=== PATIENT | female | born 1990 | race Caucasian/White ===

== ENCOUNTER 2017-01-09 20:00 | Emergency (ER) | payer OTHER, SELFPAY ==
[2017-01-09 20:21] VITALS: BP 150/90
--- NOTE | 2017-01-09 21:44 | EDM.PDOC ---
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 She found out a couple of days ago that she is . Tonight she felt some wetness down between her legs when she was going to go to the bathroom and she noted some blood when she urinated. She did not notice any tissue or clots in fact she is not sure how much she is really bleeding or if she just spotting. She's had no cramps with this bleeding. She thinks she is about 5-6 weeks along. She is a 2 para 1 abortus 0 and her living child is about 5 years old. She denies any other acute symptoms. She denies any urinary symptoms. - Related Data Allergies Allergy/AdvReac Type Severity Reaction Status Date / Time acetaminophen [From [place]] Allergy Rash Verified 01/09/17 20:22 hydrocodone [From [place]] Allergy Rash Verified 01/09/17 20:22 Home Meds: Home Meds Citalopram [Celexa] 10 mg PO DAILY 01/09/17 [History] Past Medical History - Past Health History Medical/Surgical History: Denies Medical/Surgical History Social & Family History - Tobacco Use Smoking Status *Q: Never Smoker ED ROS GENERAL - Review of Systems Review Of Systems: See Below Constitutional: Reports: No Symptoms HEENT: Reports: No Symptoms Respiratory: Reports: No Symptoms Cardiovascular: Reports: No Symptoms Endocrine: Reports: No Symptoms GI/Abdominal: Reports: Other (She has been having some lower abdominal pain that she talk to her doctor about it who told her it was just tissue down there stretching and it's on both sides) : Reports: No Symptoms Musculoskeletal: Reports: No Symptoms Skin: Reports: No Symptoms Neurological: Reports: No Symptoms Psychiatric: Reports: No Symptoms ED EXAM - Physical Exam Exam: See Below Exam Limited By: No Limitations General Appearance: Alert, WD/WN Eye Exam: Bilateral Eye: Normal Inspection Ears: Normal External Exam Nose: Normal Inspection Throat/Mouth: Normal Inspection, Normal Lips, Normal Voice Head: Atraumatic Neck: Supple Respiratory/Chest: No Respiratory Distress GI/Abdominal Exam: Soft, Non-Tender. No: Guarding, Rigid, Rebound (Female) Exam: Other (Patient has deferred the pelvic exam until after the ultrasound to see if it's needed) Back Exam: Full Range of Motion Extremities: Normal Inspection, Normal Range of Motion Neurological: Alert, Oriented Psychiatric: Normal Affect, Tearful Skin Exam: Warm, Dry Course - Vital Signs Last Recorded V/S: Last Vital Signs Temp 98.2 F 01/09/17 20:19 Pulse 104 H 01/09/17 20:19 Resp 18 01/09/17 20:19 BP 150/90 H 01/09/17 20:19 Pulse Ox 100 01/09/17 20:19 - Orders/Labs/Meds Orders: Active Orders 24 hr Category Date Time Status OB Transvaginal [US] Stat Exams 01/09/17 21:08 Taken Labs: Laboratory Tests 01/09/17 01/09/17 Range/Units 21:19 21:19 WBC 9.93 (3.98-10.04) K/mm3 RBC 4.77 (3.98-5.22) M/mm3 Hgb 13.9 (11.2-15.7) gm/L Hct 41.1 (34.1-44.9) % MCV 86.2 (79.4-94.8) fl MCH 29.1 (25.6-32.2) pg MCHC 33.8 (32.2-35.5) g/dl RDW Std Deviation 39.3 (36.4-46.3) fL Plt Count 226 (182-369) K/mm3 MPV 11.9 (9.4-12.3) fl Neut % (Auto) 58.5 (34.0-71.1) % Lymph % (Auto) 28.7 (19.3-51.7) % [place] % (Auto) 10.2 (4.7-12.5) % Eos % (Auto) 2.0 (0.7-5.8) Baso % (Auto) 0.3 (0.1-1.2) % Neut # (Auto) 5.81 (1.56-6.13) K/mm3 Lymph # (Auto) 2.85 (1.18-3.74) K/mm3 [place] # (Auto) 1.01 H (0.24-0.36) K/mm3 Eos # (Auto) 0.20 (0.04-0.36) K/mm3 Baso # (Auto) 0.03 (0.01-0.08) K/mm3 HCG, Quant 4842.0 mIU/mL - Radiology Interpretation Free Text/Narrative:: Ultrasound shows a gestational sac within the endometrial canal of the fundus not certain whether is a pole that is measuring 5 weeks 5 days no visualize yolk sac and no cardiac activity is noted. - Re-Assessments/Exams Free Text/Narrative Re-Assessment/Exam: 01/09/17 22:51 I spoke to the patient regarding the ultrasound. She understands that she needs to go home and be at bed rest over the weekend and if her symptoms worsen or if the bleeding worsens or there is any clots she needs to return to the ER. Her beta-hCG correlates correctly with 5 weeks. I explained to her that this might be a viable fetus we don't know at this point and it is possible this is the early symptoms of a miscarriage. She is going to follow up with Dr. Pineda on Thursday for recheck or return to the ER if her symptoms worsen. Departure - Departure Time of Disposition: 22:52 Disposition: Home, Self-Care 01 Condition: Good Clinical Impression: Threatened miscarriage in early - Discharge Information Referrals: Jacobo Holland [Primary Care Provider] - Milton Pineda MD [Physician] - Forms: ED Department Discharge Additional Instructions: Home and bed rest over the weekend, no strenuous activity no straining when you go to the bathroom, if there is worsening bleeding or clots noted or marked increase abdominal cramps return to the ER for reevaluation, otherwise follow up with Dr. Pineda by calling his office on Thursday for recheck and a repeat beta hCG as well as possible repeat ultrasound - My Orders Last 24 Hours: My Active Orders 01/09/17 21:08 OB Transvaginal [US] Stat - Assessment/Plan Last 24 Hours: My Active Orders 01/09/17 21:08 OB Transvaginal [US] Stat
--- NOTE | 2017-01-11 19:58 | US ---
First trimester obstetrical ultrasound: Multiple real-time images were obtained transvaginally. Single intrauterine gestation is seen. There appears to be a pole present but no heart activity seen at this time. Hypoechoic material is identified within the endometrial cavity compatible with blood clot. Small amount of free fluid is seen believed to be physiologic. Ovaries appear within normal limits. Measurements: Gestational sac: 0.73 cm - 5 weeks 2 days [place]-rump length: 0.24 cm - 5 weeks 5 days Impression: 1. Blood clot identified within the endometrial cavity. 2. Small gestational sac with what appears to be a pole. No heart activity is seen. Findings may represent nonviable although follow-up study (if patient does not miscarry) recommended in 11 days. 3. Slight free fluid is identified and believed to be physiologic. Diagnostic code #3 Agree with preliminary report issued by [employer] ([facility] preliminary report dictated on 01/09/17, 11:42 PM Central Time)
== END 2017-01-09 22:59 | disposition home or self-care (01) ==
LOC: JD.ED 20:00
DX: O20.0 Threatened abortion (principal); Z88.6 Allergy status to analgesic agent; Z88.5 Allergy status to narcotic agent; Z79.899 Other long term (current) drug therapy; Z3A.01 Less than 8 weeks gestation of pregnancy
CPT/HCPCS: 36415; 76817; 76817-26; 84702; 85025; 99283; 99284-25

== ENCOUNTER 2017-08-30 14:54 | Inpatient (IN) | payer MEDICAID, OTHER ==
[2017-08-30] MEDS ORDERED: Sodium Chloride 0.9% 10 ML Syringe FLUSH PRN (18:28)
[2017-08-30] MEDS ORDERED: Oxytocin/Lactated Ringers 10 UNIT/1,000 ML BAG IV SCH (18:45)
[2017-08-31] MEDS ORDERED: Oxytocin/Lactated Ringers 10 UNIT/1,000 ML BAG IV SCH (00:15)
[2017-08-31] MEDS: Lactated Ringers 1,000 ML IV SCH ×3 (00:42→08:02)
[2017-08-31] MEDS ORDERED: ePHEDrine 50 MG/ML SDV IVPUSH PRN (02:20)
[2017-08-31] MEDS ORDERED: diphenhydrAMINE 50 MG/ML SDV IVPUSH PRN (02:20)
[2017-08-31] MEDS ORDERED: fentaNYL 100 MCG/2 ML SDV EPIDUR PRN (02:20)
[2017-08-31] MEDS ORDERED: Ondansetron 4 MG/2 ML SDV IVPUSH PRN (02:20)
[2017-08-31] MEDS ORDERED: Bupivacaine/fentaNYL/NS 100 ML Bag EPIDUR SCH (02:30)
--- NOTE | 2017-08-31 03:29 | PCM.PREANE ---
Preanesthetic Assessment - Procedure Proposed Procedure: [facility]URTIS - Anesthesia/Transfusion/Family Hx Anesthesia History: Prior Anesthesia Without Reaction Family History of Anesthesia Reaction: No Transfusion History: No Prior Transfusion(s) - Review of Systems General: No Symptoms Pulmonary: Other (hx asthma (childhood) but currently does not use an inhaler ) Cardiovascular: No Symptoms Gastrointestinal: No Symptoms Neurological: No Symptoms Other: Reports: Depression, Anxiety - Physical Assessment NPO Status Date: 08/30/17 NPO Status Time: 23:00 Pulse: 100 Respiratory Rate: 16 Blood Pressure: 133/86 Vital Signs: Last Vital Signs Temp 36.8 C 08/30/17 15:28 Pulse 100 08/30/17 18:00 Resp 16 08/30/17 15:28 BP 133/86 08/30/17 18:00 Pulse Ox Height: 1.65 m Weight: 99.904 kg ASA Class: 2 Mental Status: Alert & Oriented x3 Airway Class: Mallampati = 1 Dentition: Reports: Missing Tooth/Teeth (bottom left molar missing ) Thyro-Mental Finger Breadths: 3 Mouth Opening Finger Breadths: 3 ROM/Head Extension: Full Lungs: Clear to Auscultation, Normal Respiratory Effort Cardiovascular: Regular Rate, Regular Rhythm - Lab Values: Laboratory Last Values WBC 8.44 K/mm3 (3.98-10.04) 08/30/17 18:40 RBC 4.16 M/mm3 (3.98-5.22) 08/30/17 18:40 Hgb 10.8 gm/L (11.2-15.7) L 08/30/17 18:40 Hct 34.2 % (34.1-44.9) 08/30/17 18:40 MCV 82.2 fl (79.4-94.8) 08/30/17 18:40 MCH 26.0 pg (25.6-32.2) 08/30/17 18:40 MCHC 31.6 g/dl (32.2-35.5) L 08/30/17 18:40 RDW Std Deviation 40.1 fL (36.4-46.3) 08/30/17 18:40 Plt Count 183 K/mm3 (182-369) 08/30/17 18:40 MPV 11.5 fl (9.4-12.3) 08/30/17 18:40 Neut % (Auto) 62.5 % (34.0-71.1) 08/30/17 18:40 Lymph % (Auto) 24.5 % (19.3-51.7) 08/30/17 18:40 [place] % (Auto) 11.4 % (4.7-12.5) 08/30/17 18:40 Eos % (Auto) 0.7 (0.7-5.8) 08/30/17 18:40 Baso % (Auto) 0.2 % (0.1-1.2) 08/30/17 18:40 Neut # (Auto) 5.27 K/mm3 (1.56-6.13) 08/30/17 18:40 Lymph # (Auto) 2.07 K/mm3 (1.18-3.74) 08/30/17 18:40 [place] # (Auto) 0.96 K/mm3 (0.24-0.36) H 08/30/17 18:40 Eos # (Auto) 0.06 K/mm3 (0.04-0.36) 08/30/17 18:40 Baso # (Auto) 0.02 K/mm3 (0.01-0.08) 08/30/17 18:40 BUN 9 mg/dL (7-18) 08/30/17 18:40 Creatinine 0.8 mg/dL (0.55-1.02) 08/30/17 18:40 Est Cr Clr Drug Dosing 97.57 mL/min 08/30/17 18:40 Estimated GFR (MDRD) > 60 mL/min (>60) 08/30/17 18:40 Uric Acid 3.9 mg/dL (2.6-6.0) 08/30/17 18:40 AST 29 U/L (15-37) 08/30/17 18:40 ALT 26 U/L (14-59) 08/30/17 18:40 Lactate Dehydrogenase 238 U/L (81-234) H 08/30/17 18:40 Membrane Rupture Negative 08/30/17 15:20 Blood Type A POSITIVE 08/30/17 18:40 Gel Antibody Screen Negative 08/30/17 18:40 - Allergies Allergies/Adverse Reactions: Allergies Allergy/AdvReac Type Severity Reaction Status Date / Time acetaminophen [From [place]] Allergy Rash Verified 01/09/17 20:22 hydrocodone [From [place]] Allergy Rash Verified 01/09/17 20:22 - Blood Blood Available: No Product(s) Available: None - Anesthesia Plan Pre-Op Medication Ordered: None - Acknowledgements Anesthesia Type Planned: Epidural Pt an Appropriate Candidate for the Planned Anesthesia: Yes Alternatives and Risks of Anesthesia Discussed w Pt/Guardian: Yes Pt/Guardian Understands and Agrees with Anesthesia Plan: Yes PreAnesthesia Questionnaire - Past Health History Medical/Surgical History: Denies 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: Psychiatric History: Reports: Anxiety, Depression - SUBSTANCE USE Smoking Status *Q: Never Smoker Second Hand Smoke Exposure: No Recreational Drug Use History: No - HOME MEDS Home Medications: Home Meds Citalopram [Celexa] 10 mg PO DAILY 01/09/17 [History] PNV #116/Iron Fumarate/FA/DHA [Expecta Combo Pack] 1 each PO DAILY [History] - CURRENT (IN HOUSE) MEDS Current Meds: Current Medications Diphenhydramine HCl (Benadryl) 25 mg IVPUSH Q6H PRN PRN Reason: Pruritis Ephedrine Sulfate (Ephedrine Sulfate) 5 mg IVPUSH ASDIRECTED PRN PRN Reason: Hypotension Fentanyl (Sublimaze) 100 mcg EPIDUR Q3H PRN PRN Reason: Pain Last Admin: 08/31/17 02:51 Dose: 100 mcg Fentanyl/Bupivacaine HCl (Fentanyl/Bupivacaine/Ns 2 Mcg-0.125% 100 Ml) 100 ml EPIDUR ASDIRECTED SANDRA Last Admin: 08/31/17 02:51 Dose: 100 ml Lactated Ringer's (Ringers, Lactated) 1,000 mls @ 100 mls/hr IV ASDIRECTED SANDRA Last Infusion: 08/31/17 02:58 Dose: 100 mls/hr Oxytocin/Lactated Ringer's (Pitocin In Lr 10 Units/1,000 Ml) 10 unit in 1,000 mls @ 500 mls/hr IV TITRATE SANDRA; Protocol Oxytocin/Lactated Ringer's (Pitocin In Lr 10 Units/1,000 Ml) 10 unit in 1,000 mls @ 12 mls/hr IV TITRATE SANDRA; Protocol Last Titration: 08/31/17 01:31 Dose: 0 munits/min, 0 mls/hr Ondansetron HCl (Zofran) 4 mg IVPUSH ONETIME PRN PRN Reason: Nausea/Vomiting Sodium Chloride (Saline Flush) 10 ml FLUSH ASDIRECTED PRN PRN Reason: Keep Vein Open Discontinued Medications Fentanyl (Sublimaze) Confirm Administered Dose 100 mcg .ROUTE .[employer] ONE Stop: 08/31/17 02:34
[2017-08-31] MEDS ORDERED: Bupivacaine 0.25% 10 ML SDV ONE (04:00)
[2017-08-31] MEDS ORDERED: Lidocaine 1.5% with EPINEPHrine 1:200,000 5 ML Amp ONE (04:00)
[2017-08-31] MEDS: fentaNYL 100 MCG/2 ML SDV ONE ×2 (05:12→09:39)
--- NOTE | 2017-08-31 08:33 | PCM.LDHP ---
L&D History of Present Illness - General Date of Service: 08/30/17 Admit Problem/Dx: Patient Status Order with Admit Dx/Problem 08/30/17 15:28 Patient Status [ADT] Routine 08/30/17 19:36 Admission Status [Patient Status] [ADT] Routine Admission Diagnosis/Problem Admission Diagnosis/Problem Source of Information: Patient - History of Present Illness Introduction:: 26 year old at 38w2 here with question of rupture of membranes. Big gush in the shower. Then soaked underwear x2 after. Also doesn't feel great, headache and very anxious. 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: Psychiatric History: Reports: Anxiety, Depression Social & Family History - Family History Family Medical History: Noncontributory - Tobacco Use Smoking Status *Q: Never Smoker Second Hand Smoke Exposure: No - Caffeine Use Caffeine Use: Reports: None - Recreational Drug Use Recreational Drug Use: No H&P Review of Systems - Review of Systems: Review Of Systems: See Below General: Reports: No Symptoms HEENT: Reports: Headaches Pulmonary: Reports: No Symptoms Cardiovascular: Reports: No Symptoms Gastrointestinal: Reports: No Symptoms Genitourinary: Reports: No Symptoms Musculoskeletal: Reports: No Symptoms Skin: Reports: No Symptoms Psychiatric: Reports: No Symptoms Neurological: Reports: No Symptoms Hematologic/Lymphatic: Reports: No Symptoms Immunologic: Reports: No Symptoms L&D Exam - Exam Exam: See Below - Vital Signs Vital Signs: Last Vital Signs Temp 36.8 C 08/30/17 15:28 Pulse 100 08/31/17 03:29 Resp 16 08/31/17 03:29 BP 133/86 08/31/17 03:29 Pulse Ox Weight: 99.904 kg - OB Specific Contraction Intensity: Mild to Moderate Movement: Active Heart Tones: Present Heart Tones per Min: 140 Presentation: Vertex - Watson Score Watson Score Cervix Position: Midposition Watson Score Consistency: Soft Watson Score Effacement: 51-70% Watson Score Dilation: 3-4 cm - Exam General: Alert, Oriented HEENT: PERRLA, Conjunctiva Clear, EACs Clear, EOMI, Hearing Intact, Mucosa Moist & [place], Nares Patent, Normal Nasal Septum, Posterior Pharynx Clear, TMs Clear Neck: Supple, Trachea Midline Lungs: Clear to Auscultation, Normal Respiratory Effort Cardiovascular: Regular Rate, Regular Rhythm GI/Abdominal Exam: Normal Bowel Sounds, Soft, Non-Tender, No Organomegaly, No Distention, No Abnormal Bruit, No Mass, Pelvis Stable Genitourinary: Normal external exam, Normal bimanual exam Back Exam: Normal Inspection, Full Range of Motion Extremities: Normal Inspection, Normal Range of Motion, Non-Tender, No Pedal Edema, Normal Capillary Refill Skin: Warm, Dry, Intact Neurological: Cranial Nerves Intact, Reflexes Equal Bilateral Psychiatric: Alert, Normal Affect, Normal Mood - Patient Data Lab Results Last 24 hrs: Laboratory Results - last 24 hr 08/30/17 08/30/17 08/30/17 Range/Units 15:20 18:40 18:40 WBC 8.44 (3.98-10.04) K/mm3 RBC 4.16 (3.98-5.22) M/mm3 Hgb 10.8 L (11.2-15.7) gm/L Hct 34.2 (34.1-44.9) % MCV 82.2 (79.4-94.8) fl MCH 26.0 (25.6-32.2) pg MCHC 31.6 L (32.2-35.5) g/dl RDW Std Deviation 40.1 (36.4-46.3) fL Plt Count 183 (182-369) K/mm3 MPV 11.5 (9.4-12.3) fl Neut % (Auto) 62.5 (34.0-71.1) % Lymph % (Auto) 24.5 (19.3-51.7) % [place] % (Auto) 11.4 (4.7-12.5) % Eos % (Auto) 0.7 (0.7-5.8) Baso % (Auto) 0.2 (0.1-1.2) % Neut # (Auto) 5.27 (1.56-6.13) K/mm3 Lymph # (Auto) 2.07 (1.18-3.74) K/mm3 [place] # (Auto) 0.96 H (0.24-0.36) K/mm3 Eos # (Auto) 0.06 (0.04-0.36) K/mm3 Baso # (Auto) 0.02 (0.01-0.08) K/mm3 BUN 9 (7-18) mg/dL Creatinine 0.8 (0.55-1.02) mg/dL Est Cr Clr Drug Dosing 97.57 mL/min Estimated GFR (MDRD) > 60 (>60) mL/min Uric Acid 3.9 (2.6-6.0) mg/dL AST 29 (15-37) U/L ALT 26 (14-59) U/L Lactate Dehydrogenase 238 H (81-234) U/L Membrane Rupture Negative Blood Type Gel Antibody Screen 08/30/17 Range/Units 18:40 WBC (3.98-10.04) K/mm3 RBC (3.98-5.22) M/mm3 Hgb (11.2-15.7) gm/L Hct (34.1-44.9) % MCV (79.4-94.8) fl MCH (25.6-32.2) pg MCHC (32.2-35.5) g/dl RDW Std Deviation (36.4-46.3) fL Plt Count (182-369) K/mm3 MPV (9.4-12.3) fl Neut % (Auto) (34.0-71.1) % Lymph % (Auto) (19.3-51.7) % [place] % (Auto) (4.7-12.5) % Eos % (Auto) (0.7-5.8) Baso % (Auto) (0.1-1.2) % Neut # (Auto) (1.56-6.13) K/mm3 Lymph # (Auto) (1.18-3.74) K/mm3 [place] # (Auto) (0.24-0.36) K/mm3 Eos # (Auto) (0.04-0.36) K/mm3 Baso # (Auto) (0.01-0.08) K/mm3 BUN (7-18) mg/dL Creatinine (0.55-1.02) mg/dL Est Cr Clr Drug Dosing mL/min Estimated GFR (MDRD) (>60) mL/min Uric Acid (2.6-6.0) mg/dL AST (15-37) U/L ALT (14-59) U/L Lactate Dehydrogenase (81-234) U/L Membrane Rupture Blood Type A POSITIVE Gel Antibody Screen Negative Result Diagrams: 08/30/17 18:40 08/30/17 18:40 Problem List Initiated/Reviewed/Updated: Yes Orders Last 24hrs: Active Orders 24 hr Category Date Time Status Admission Status [Patient Status] [ADT] Routine ADT 08/30/17 19:36 Active Activity as Tolerated [RC] PFP Care 08/30/17 18:28 Active Communication Order [RC] ASDIRECTED Care 08/30/17 18:28 Active Heart Tones [RC] ASDIRECTED Care 08/30/17 18:28 Active Notify Provider [RC] PFP Care 08/30/17 18:28 Active Notify Provider [RC] PRN Care 08/30/17 18:28 Active Peripheral IV Care [RC] . DIRECTED Care 08/30/17 18:28 Active Pump Management, Intrathecal [RC] ASDIRECTED Care 08/30/17 18:41 Active Urinary Catheter Assessment [RC] ASDIRECTED Care 08/30/17 18:40 Active Vaginal Exam [RC] PRN Care 08/30/17 15:28 Active Vital Signs [RC] PER UNIT ROUTINE Care 08/30/17 15:28 Active Vital Signs [RC] PER UNIT ROUTINE Care 08/30/17 18:28 Active Regular Diet [DIET] Diet 08/31/17 Breakfast Active Bupivacaine/fentaNYL/NS [fentaNYL/Bupivacaine/NS 2 MCG- Med 08/31/17 02:30 Active 0.125% 100 ML] 100 ml EPIDUR ASDIRECTED Lactated Ringers [Ringers, Lactated] 1,000 ml Med 08/30/17 18:30 Active IV ASDIRECTED Ondansetron [Zofran] Med 08/31/17 02:20 Active 4 mg IVPUSH ONETIME PRN Oxytocin/Lactated Ringers [Pitocin in LR 10 Units/1,000 Med 08/30/17 18:45 Active ML] 10 unit in 1,000 ml IV TITRATE Oxytocin/Lactated Ringers [Pitocin in LR 10 Units/1,000 Med 08/31/17 00:15 Active ML] 10 unit in 1,000 ml IV TITRATE Sodium Chloride 0.9% [Saline Flush] Med 08/30/17 18:28 Active 10 ml FLUSH ASDIRECTED PRN diphenhydrAMINE [Benadryl] Med 08/31/17 02:20 Active 25 mg IVPUSH Q6H PRN ePHEDrine [ePHEDrine Sulfate] Med 08/31/17 02:20 Active 5 mg IVPUSH ASDIRECTED PRN fentaNYL [Sublimaze] Med 08/31/17 02:20 Active 100 mcg EPIDUR Q3H PRN Electronic Heart Tones Ext w TOCO [WOMSER] Oth 08/30/17 18:28 Ordered Routine Electronic Heart Tones Internal [WOMSER] Per Unit Oth 08/30/17 18:28 Ordered Routine PIH Panel [OM.PC] Stat Oth 08/30/17 18:28 Ordered Peripheral IV Insertion Adult [OM.PC] Routine Oth 08/30/17 18:28 Ordered Resuscitation Status Routine Resus Stat 08/30/17 15:28 Ordered Medication Orders Diphenhydramine HCl (Benadryl) 25 mg IVPUSH Q6H PRN PRN Reason: Pruritis Ephedrine Sulfate (Ephedrine Sulfate) 5 mg IVPUSH ASDIRECTED PRN PRN Reason: Hypotension Fentanyl (Sublimaze) 100 mcg EPIDUR Q3H PRN PRN Reason: Pain Last Admin: 08/31/17 02:51 Dose: 100 mcg Fentanyl/Bupivacaine HCl (Fentanyl/Bupivacaine/Ns 2 Mcg-0.125% 100 Ml) 100 ml EPIDUR ASDIRECTED [facility] Last Admin: 08/31/17 02:51 Dose: 100 ml Lactated Ringer's (Ringers, Lactated) 1,000 mls @ 100 mls/hr IV ASDIRECTED [facility] Last Admin: 08/31/17 08:02 Dose: 100 mls/hr Infusion: 08/31/17 07:06 Dose: 100 mls/hr Infusion: 08/31/17 02:58 Dose: 100 mls/hr Admin: 08/31/17 02:14 Dose: 800 mls/hr Infusion: 08/31/17 02:14 Dose: 800 mls/hr Infusion: 08/31/17 01:34 Dose: 800 mls/hr Infusion: 08/31/17 01:32 Dose: 500 mls/hr Admin: 08/31/17 00:42 Dose: 100 mls/hr Oxytocin/Lactated Ringer's (Pitocin In Lr 10 Units/1,000 Ml) 10 unit in 1,000 mls @ 500 mls/hr IV TITRATE SANDRA; Protocol Oxytocin/Lactated Ringer's (Pitocin In Lr 10 Units/1,000 Ml) 10 unit in 1,000 mls @ 12 mls/hr IV TITRATE SANDRA; Protocol Last Titration: 08/31/17 05:47 Dose: 4 munits/min, 24 mls/hr Titration: 08/31/17 05:13 Dose: 2 munits/min, 12 mls/hr Titration: 08/31/17 01:31 Dose: 0 munits/min, 0 mls/hr Admin: 08/31/17 00:48 Dose: 1 munits/min, 6 mls/hr Ondansetron HCl (Zofran) 4 mg IVPUSH ONETIME PRN PRN Reason: Nausea/Vomiting Last Admin: 08/31/17 07:51 Dose: 4 mg Sodium Chloride (Saline Flush) 10 ml FLUSH ASDIRECTED PRN PRN Reason: Keep Vein Open Assessment/Plan Comment:: 26 year old at 38w with gestational hypertension with consistent blood pressures 140-150/90s. Normal labs. Irregular contractions with some painful. Will augment given gestational hypertension. AROM in about an hour when patient's spouse here.
--- NOTE | 2017-08-31 08:35 | PCM.PNLD ---
Labor Progress Note - VS & Meds Vital Signs: Last Vital Signs Temp 36.8 C 08/30/17 15:28 Pulse 100 08/31/17 03:29 Resp 16 08/31/17 03:29 BP 133/86 08/31/17 03:29 Pulse Ox Active Medications: Current Medications Diphenhydramine HCl (Benadryl) 25 mg IVPUSH Q6H PRN PRN Reason: Pruritis Ephedrine Sulfate (Ephedrine Sulfate) 5 mg IVPUSH ASDIRECTED PRN PRN Reason: Hypotension Fentanyl (Sublimaze) 100 mcg EPIDUR Q3H PRN PRN Reason: Pain Last Admin: 08/31/17 02:51 Dose: 100 mcg Fentanyl/Bupivacaine HCl (Fentanyl/Bupivacaine/Ns 2 Mcg-0.125% 100 Ml) 100 ml EPIDUR ASDIRECTED SANDRA Last Admin: 08/31/17 02:51 Dose: 100 ml Lactated Ringer's (Ringers, Lactated) 1,000 mls @ 100 mls/hr IV ASDIRECTED SANDRA Last Admin: 08/31/17 08:02 Dose: 100 mls/hr Oxytocin/Lactated Ringer's (Pitocin In Lr 10 Units/1,000 Ml) 10 unit in 1,000 mls @ 500 mls/hr IV TITRATE SANDRA; Protocol Oxytocin/Lactated Ringer's (Pitocin In Lr 10 Units/1,000 Ml) 10 unit in 1,000 mls @ 12 mls/hr IV TITRATE SANDRA; Protocol Last Titration: 08/31/17 05:47 Dose: 4 munits/min, 24 mls/hr Ondansetron HCl (Zofran) 4 mg IVPUSH ONETIME PRN PRN Reason: Nausea/Vomiting Last Admin: 08/31/17 07:51 Dose: 4 mg Sodium Chloride (Saline Flush) 10 ml FLUSH ASDIRECTED PRN PRN Reason: Keep Vein Open Discontinued Medications Fentanyl (Sublimaze) Confirm Administered Dose 100 mcg .ROUTE .[facility] ONE Stop: 08/31/17 02:34 Last Admin: 08/31/17 05:12 Dose: Not Given - Uterine Contractions Contraction Intensity: Mild to Moderate Uterine Resting Tone: Soft - Monitoring Monitor Mode: Spiral Electrode Heart Rate (FHR) Baseline: 140 Heart Rate (FHR) Variability: Moderate (6-25 bmp) Accelerations: Present, 15x15 Strip Review: Category I - Vaginal Exam Cervical Position: Midposition - Labor Progress (Free Text) Labor Progress: One deceleration x7 minutes. Otherwise very reassuring FHT with good accelerations and variability. Continue pitocin.
--- NOTE | 2017-08-31 08:37 | PCM.SN ---
- Free Text/Narrative Note: Patient comfortable. here. Less anxious. Vitals reviewed. Continued elevated bps. AROM clear fluid. 3 cm.
--- NOTE | 2017-08-31 13:59 | PCM.SN ---
- Free Text/Narrative Note: Stage 1 - Patient admitted for induction for gestational hypertension. AROM clear fluid. Pitocin augmentation. Progressed nicely to complete with overall reassuring heart tones. Epidural for anesthesia. Stage 2 - At complete pushing for 1.5 hours. Head delivered in controlled manner over intact perineum over two contractions. Shoulders did not delivery easily. Geraldo and suprapubic pressure utilized. No significant movement of shoulders. Head CHELSEY. Hand placed along posterior shoulder to attempt to push it forward and change the angle. Suprapubic pressure again and after 2.5 minutes delivery achieved. Cord clamped and cut. Limp infant handed off to awaiting nursing staff. APGARS 4/8. Weight 3300. Female. Cord blood collected. Stage 3 - Placenta delivered spontaneous and intact. Small 1st degree laceration repaired with 3-0 monocryl.
[2017-08-31] MEDS ORDERED: Witch Hazel Medicated Pads 100/Jar TOP PRN (15:18)
[2017-08-31] MEDS ORDERED: Ibuprofen 600 MG Tab PO PRN (15:18)
[2017-08-31] MEDS ORDERED: Benzocaine/Menthol 20%-0.5% Spray 56 GM Canister TOP PRN (15:18)
[2017-08-31] MEDS ORDERED: Lanolin 100% Cream 7 GM Tube TOP PRN (15:18)
[2017-08-31] MEDS: CITALOPRAM 10 MG PO SCH (20:30)
--- NOTE | 2017-09-01 08:33 | PCM48HPAN ---
Post Anesthesia Note - EVALUATION WITHIN 48HRS OF ANESTHETIC Vital Signs in Normal Range: Yes Patient Participated in Evaluation: Yes Respiratory Function Stable: Yes Airway Patent: Yes Cardiovascular Function Stable: Yes Hydration Status Stable: Yes Pain Control Satisfactory: Yes Nausea and Vomiting Control Satisfactory: Yes Mental Status Recovered: Yes Pulse Rate: 83 Resp Rate: 15 Temperature: 96.8 F Blood Pressure: 121/64
[2017-09-01] MEDS ORDERED: Docusate Sodium 100 MG Cap PO PRN (19:51)
[2017-09-01] MEDS ORDERED: Polyethylene Glycol 3350 Powder 17 GM Packet PO PRN (21:00)
[2017-09-01] MEDS: CITALOPRAM 10 MG PO SCH (22:41)
--- NOTE | 2017-09-02 05:05 | PCM.PNPP ---
- General Info Date of Service: 09/01/17 Subjective Update: Slept well overnight. No complaints. Minimal lochia, minimal pain. Breast feeding going well Functional Status: Reports: Pain Controlled - Review of Systems General: Reports: No Symptoms HEENT: Reports: No Symptoms Pulmonary: Reports: No Symptoms Cardiovascular: Reports: No Symptoms Gastrointestinal: Reports: No Symptoms Genitourinary: Reports: No Symptoms Musculoskeletal: Reports: No Symptoms Skin: Reports: No Symptoms Neurological: Reports: No Symptoms Psychiatric: Reports: No Symptoms - General Info Date of Service: 09/01/17 - Patient Data Vital Signs - Most Recent: Last Vital Signs Temp 36.4 C 09/01/17 19:46 Pulse 96 09/01/17 19:46 Resp 16 09/01/17 19:46 BP 138/84 09/01/17 19:46 Pulse Ox 98 09/01/17 19:46 Weight - Most Recent: 99.904 kg I&O - Last 24 Hours: Intake & Output 09/01/17 09/01/17 09/02/17 14:59 22:59 06:59 Intake Total 120 680 Balance 120 680 Med Orders - Current: Current Medications Benzocaine/Menthol (Dermoplast Pain Relief [place]) 0 gm TOP ASDIRECTED PRN PRN Reason: Perineal Comfort Measure Citalopram Hydrobromide (Celexa) 10 mg PO BEDTIME SADNRA Last Admin: 09/01/17 22:41 Dose: Not Given Docusate Sodium (Colace) 100 mg PO BID PRN PRN Reason: Constipation Emollient Ointment (Lansinoh Hpa) 0 gm TOP ASDIRECTED PRN PRN Reason: Sore Nipples Ibuprofen (Motrin) 600 mg PO Q6H PRN PRN Reason: Mild pain or fever Polyethylene Glycol (Miralax) 17 gm PO BEDTIME PRN PRN Reason: Constipation Last Admin: 09/01/17 21:20 Dose: 17 gm Witch Yolanda (Tucks) 1 pad TOP ASDIRECTED PRN PRN Reason: Hemorrhoid pain Discontinued Medications Bupivacaine HCl (Sensorcaine-Mpf 0.25%) 20 ml .ROUTE .STK-MED ONE Stop: 08/31/17 04:01 Diphenhydramine HCl (Benadryl) 25 mg IVPUSH Q6H PRN PRN Reason: Pruritis Ephedrine Sulfate (Ephedrine Sulfate) 5 mg IVPUSH ASDIRECTED PRN PRN Reason: Hypotension Fentanyl (Sublimaze) 100 mcg EPIDUR Q3H PRN PRN Reason: Pain Last Admin: 08/31/17 02:51 Dose: 100 mcg Fentanyl (Sublimaze) Confirm Administered Dose 100 mcg .ROUTE .[place] ONE Stop: 08/31/17 02:34 Last Admin: 08/31/17 09:39 Dose: 100 mcg Fentanyl/Bupivacaine HCl (Fentanyl/Bupivacaine/Ns 2 Mcg-0.125% 100 Ml) 100 ml EPIDUR ASDIRECTED SANDRA Last Admin: 08/31/17 02:51 Dose: 100 ml Lactated Ringer's (Ringers, Lactated) 1,000 mls @ 100 mls/hr IV ASDIRECTED SANDRA Last Admin: 08/31/17 08:02 Dose: 100 mls/hr Oxytocin/Lactated Ringer's (Pitocin In Lr 10 Units/1,000 Ml) 10 unit in 1,000 mls @ 500 mls/hr IV TITRATE SANDRA; Protocol Oxytocin/Lactated Ringer's (Pitocin In Lr 10 Units/1,000 Ml) 10 unit in 1,000 mls @ 12 mls/hr IV TITRATE SANDRA; Protocol Last Titration: 08/31/17 12:33 Dose: 12 munits/min, 72 mls/hr Lidocaine/Epinephrine (Xylocaine-Mpf 1.5% W/Epinephrine 1:200,000) 5 ml .ROUTE .Picurio ONE Stop: 08/31/17 04:01 Ondansetron HCl (Zofran) 4 mg IVPUSH ONETIME PRN PRN Reason: Nausea/Vomiting Last Admin: 08/31/17 07:51 Dose: 4 mg Sodium Chloride (Saline Flush) 10 ml FLUSH ASDIRECTED PRN PRN Reason: Keep Vein Open - Interaction Infant Disposition, : in Room with Family Support Person: Significant Other - Recovery Exam Fundal Tone: Firm Fundal Level: 1 Fingerbreadths Below Umbilicus Fundal Placement: Midline Lochia Amount: Small Lochia Color: Rubra/Red Perineum Description: Intact, Minimal Bruising/Swelling Episiotomy/Laceration: Approximated Bladder Status: Voiding Urinary Elimination: Voided - Exam General: Alert, Oriented HEENT: Pupils Equal Neck: Supple Lungs: Clear to Auscultation, Normal Respiratory Effort Cardiovascular: Regular Rate, Regular Rhythm GI/Abdominal Exam: Normal Bowel Sounds, Soft, Non-Tender, No Organomegaly, No Distention, No Abnormal Bruit, No Mass, Pelvis Stable Extremities: Normal Inspection, Normal Range of Motion, Non-Tender, No Pedal Edema, Normal Capillary Refill Neurological: No New Focal Deficit Psy/Mental Status: Alert, Normal Affect, Normal Mood - Problem List Review Problem List Initiated/Reviewed/Updated: Yes - My Orders Last 24 Hours: My Active Orders 09/01/17 15:18 Heat Therapy [OM.PC] PRN 09/01/17 19:51 Docusate Sodium [Colace] 100 mg PO BID PRN 09/01/17 21:00 Polyethylene Glycol 3350 [MiraLAX] 17 gm PO BEDTIME PRN - Assessment Assessment:: day 1 status post spontaneous vaginal delivery with significant shoulder dystocia. Spent some time again discussing this with the patient. She feels her family is complete but did discuss consideration of section with next delivery even though we did discuss the variable recurrence rate of shoulder dystocia. Overall with regard to care as she is doing excellent and should be ready for discharge tomorrow - Plan Plan:: Routine care Plan discharge tomorrow
--- NOTE | 2017-09-02 05:08 | PCM.DCSUM1 ---
Discharge Summary - Hospital Course Brief History: Admitted with gestational hypertension for labor augmentation. - Discharge Data Discharge Date: 09/02/17 Discharge Disposition: Home, Self-Care 01 Condition: Good - Patient Summary/Data Hospital Course: Unremarkable induction. Mild range blood pressures. Significant shoulder dystocia with delivery - Patient Instructions Diet: Usual Diet as Tolerated Activity: No Strenuous Activities Activity, Other: pelvic rest Driving: May Drive Today Showering/Bathing: May Shower Notify Provider of: Fever, Increased Pain, Swelling and Redness, Drainage, Nausea and/or Vomiting - Discharge Plan Home Medications: Home Meds Citalopram [Celexa] 10 mg PO DAILY 01/09/17 [History] PNV #116/Iron Fumarate/FA/DHA [Expecta Combo Pack] 1 each PO DAILY [History] Referrals: Milton Pineda MD [Primary Care Provider] - (1-2 weeks (blood pressure check too)) - Discharge Summary/Plan Comment DC Time >30 min.: No - General Info Date of Service: 09/02/17 - Review of Systems General: Reports: No Symptoms HEENT: Reports: No Symptoms Pulmonary: Reports: No Symptoms Cardiovascular: Reports: No Symptoms Gastrointestinal: Reports: No Symptoms Genitourinary: Reports: No Symptoms Musculoskeletal: Reports: No Symptoms Skin: Reports: No Symptoms Neurological: Reports: No Symptoms Psychiatric: Reports: No Symptoms - Patient Data Vitals - Most Recent: Last Vital Signs Temp 36.4 C 09/01/17 19:46 Pulse 96 09/01/17 19:46 Resp 16 09/01/17 19:46 BP 138/84 09/01/17 19:46 Pulse Ox 98 09/01/17 19:46 Weight - Most Recent: 99.904 kg I&O - Last 24 hours: Intake & Output 09/01/17 09/01/17 09/02/17 14:59 22:59 06:59 Intake Total 120 680 Balance 120 680 Med Orders - Current: Current Medications Benzocaine/Menthol (Dermoplast Pain Relief [place]) 0 gm TOP ASDIRECTED PRN PRN Reason: Perineal Comfort Measure Citalopram Hydrobromide (Celexa) 10 mg PO BEDTIME SANDRA Last Admin: 09/01/17 22:41 Dose: Not Given Docusate Sodium (Colace) 100 mg PO BID PRN PRN Reason: Constipation Emollient Ointment (Lansinoh Hpa) 0 gm TOP ASDIRECTED PRN PRN Reason: Sore Nipples Ibuprofen (Motrin) 600 mg PO Q6H PRN PRN Reason: Mild pain or fever Polyethylene Glycol (Miralax) 17 gm PO BEDTIME PRN PRN Reason: Constipation Last Admin: 09/01/17 21:20 Dose: 17 gm Witch Yolanda (Tucks) 1 pad TOP ASDIRECTED PRN PRN Reason: Hemorrhoid pain Discontinued Medications Bupivacaine HCl (Sensorcaine-Mpf 0.25%) 20 ml .ROUTE .[employer]-MED ONE Stop: 08/31/17 04:01 Diphenhydramine HCl (Benadryl) 25 mg IVPUSH Q6H PRN PRN Reason: Pruritis Ephedrine Sulfate (Ephedrine Sulfate) 5 mg IVPUSH ASDIRECTED PRN PRN Reason: Hypotension Fentanyl (Sublimaze) 100 mcg EPIDUR Q3H PRN PRN Reason: Pain Last Admin: 08/31/17 02:51 Dose: 100 mcg Fentanyl (Sublimaze) Confirm Administered Dose 100 mcg .ROUTE .STOuiCarMED ONE Stop: 08/31/17 02:34 Last Admin: 08/31/17 09:39 Dose: 100 mcg Fentanyl/Bupivacaine HCl (Fentanyl/Bupivacaine/Ns 2 Mcg-0.125% 100 Ml) 100 ml EPIDUR ASDIRECTED SANDRA Last Admin: 08/31/17 02:51 Dose: 100 ml Lactated Ringer's (Ringers, Lactated) 1,000 mls @ 100 mls/hr IV ASDIRECTED SANDRA Last Admin: 08/31/17 08:02 Dose: 100 mls/hr Oxytocin/Lactated Ringer's (Pitocin In Lr 10 Units/1,000 Ml) 10 unit in 1,000 mls @ 500 mls/hr IV TITRATE SANDRA; Protocol Oxytocin/Lactated Ringer's (Pitocin In Lr 10 Units/1,000 Ml) 10 unit in 1,000 mls @ 12 mls/hr IV TITRATE SANDRA; Protocol Last Titration: 08/31/17 12:33 Dose: 12 munits/min, 72 mls/hr Lidocaine/Epinephrine (Xylocaine-Mpf 1.5% W/Epinephrine 1:200,000) 5 ml .ROUTE .STK-[place] ONE Stop: 08/31/17 04:01 Ondansetron HCl (Zofran) 4 mg IVPUSH ONETIME PRN PRN Reason: Nausea/Vomiting Last Admin: 08/31/17 07:51 Dose: 4 mg Sodium Chloride (Saline Flush) 10 ml FLUSH ASDIRECTED PRN PRN Reason: Keep Vein Open - Exam General: Reports: Alert, Oriented HEENT: Reports: Pupils Equal, Pupils Reactive, EOMI, Mucous Membr. Moist/[place] Neck: Reports: Supple Lungs: Reports: Clear to Auscultation, Normal Respiratory Effort Cardiovascular: Reports: Regular Rate, Regular Rhythm GI/Abdominal Exam: Normal Bowel Sounds, Soft, Non-Tender, No Organomegaly, No Distention, No Abnormal Bruit, No Mass, Pelvis Stable Back Exam: Reports: Normal Inspection, Full Range of Motion Extremities: Normal Inspection, Normal Range of Motion, Non-Tender, No Pedal Edema, Normal Capillary Refill Skin: Reports: Warm, Dry, Intact Wound/Incisions: Reports: Healing Well Neurological: Reports: No New Focal Deficit Psy/Mental Status: Reports: Alert, Normal Affect, Normal Mood
[2017-09-02 12:27] VITALS: BP 137/92
== END 2017-09-02 11:10 | disposition home or self-care (01) | DRG 775 ==
LOC: JD.OBCHECK 14:54 → JD.OB 14:54 → JD.OBCHECK 19:39 → OBSVTOIN 08-31 13:14 → JD.OB 08-31 13:15
PROVIDERS: ADMIT Obstetrics & Gynecology; ATTEND Obstetrics & Gynecology
PROC: 10E0XZZ Delivery of Products of Conception, External Approach (ICD-10-PCS; principal; 2017-08-31)
PROC: 0HQ9XZZ Repair Perineum Skin, External Approach (ICD-10-PCS; 2017-08-31)
PROC: 3E0S3GC Introduction of Other Therapeutic Substance into Epidural Space, Percutaneous Approach (ICD-10-PCS; 2017-08-31)
DX: O13.4 Gestational [pregnancy-induced] hypertension without significant proteinuria, complicating childbirth (principal); Z37.0 Single live birth; Z3A.38 38 weeks gestation of pregnancy; O66.0 Obstructed labor due to shoulder dystocia; O70.0 First degree perineal laceration during delivery
CPT/HCPCS: 01967; 36415; 51701; 51702; 59020; 59300; 59409; 82565; 83615; 84112; 84450; 84460; 84520; 84550; 85025; 86850; 86900; 86901; A9270-GY; J2405; J2590; J3010; J7120